=== PATIENT | female | born 1990 | race Caucasian/White ===

== ENCOUNTER 2023-08-28 12:12 | Emergency (ER) | payer SELFPAY ==
[2023-08-28 13:15] LABS: BASOPHILS PERCENT AUTO 0.3 % (0.0-1.0); EOSINOPHILS ABSOLUTE AUTO 0.3 K/mm3 (0.0-0.4); EOSINOPHILS PERCENT AUTO 2.2 % (0.0-6.0); HEMATOCRIT 44.8 % (37.0-47.0); HEMOGLOBIN 14.8 gm/dl (12.0-16.0); IMMATURE GRAN ABSOLUTE AUTO 0.05 K/mm3 (0.00-0.05); IMMATURE GRAN PERCENT AUTO 0.4 % (0.0-0.4); LYMPHOCYTES ABSOLUTE AUTO 1.2 K/mm3 (1.0-4.8); LYMPHOCYTES PERCENT AUTO 8.8 % (24.0-44.0); MEAN CORPUSCULAR HEMOGLOBIN 29.7 pg (28.0-32.0); MEAN PLATELET VOLUME 10.1 fl (9.4-12.3); MONOCYTES ABSOLUTE AUTO 1.3 K/mm3 (0.0-0.8); NEUTROPHILS PERCENT AUTO 79.3 % (41.0-71.0); PLATELET COUNT,PLT 248 K/mm3 (150-400); RED BLOOD CELL COUNT 4.98 M/mm3 (4.10-5.30); WHITE BLOOD CELL COUNT,WBC 13.89 K/mm3 (3.9-11.3)
[2023-08-28] MEDS: Iopamidol 612 MG/ML 100 ML Bottle IVPUSH ONE (13:23)
[2023-08-28] MEDS: Sodium Chloride 0.9% 10 ML Syringe FLUSH ONE (13:24)
[2023-08-28 13:33] LABS: ALBUMIN 4.1 g/dl (3.4-5.0); ANION GAP 11.7 (5-15); CALCIUM 9.3 mg/dL (8.5-10.1); CREATININE 0.7 mg/dL (0.55-1.02); EST CRCL DRUG DOSING (CG) 89.56 mL/min; POTASSIUM,K 3.7 mEq/L (3.5-5.1); PROTEIN TOTAL,TP 8.2 g/dl (6.4-8.2)
[2023-08-28] MEDS: cefTRIAXone 2 GM in Sodium Chloride 0.9% 100 ML IV ONE (13:43)
[2023-08-28] MEDS: Sodium Chloride 0.9% 1,000 ML IV ONE (13:43)
[2023-08-28] MEDS: methylPREDNISolone Sodium Succinate 125 MG/2 ML SDV IVPUSH ONE (13:44)
[2023-08-28] MEDS: Ketorolac 30 MG/ML SDV IVPUSH ONE (13:44)
[2023-08-28] MEDS: Sodium Chloride 0.9% 10 ML Syringe FLUSH PRN (13:50)
[2023-08-28 13:53] LABS: LACTIC ACID 0.7 mmol/L (0.4-2.0)
== END 2023-08-28 15:06 | disposition home or self-care (01) ==
LOC: JD.ED 12:12
DX: J02.8 Acute pharyngitis due to other specified organisms (principal); F17.210 Nicotine dependence, cigarettes, uncomplicated
CPT/HCPCS: 36415; 70491; 80053; 83605; 85025; 86308; 87040; 87651; 96365; 96375; 99284; J0696; J1885; J2919; J3490; J7030; Q9967